=== PATIENT | female | born 1965 | race Caucasian/White ===

== ENCOUNTER 2025-03-17 11:25 | Emergency (ER) | payer BC, SELFPAY ==
[2025-03-17 11:31] VITALS: BP 128/87
[2025-03-17 12:19] VITALS: BP 128/87
[2025-03-17 12:24] VITALS: BMI 39.2
--- NOTE | 2025-03-17 12:41 | ED.GENMED ---
History of Present Illness
<Tasha Negro PA-C - Last Filed: 03/17/25 16:35>
General
Chief Complaint: Social Service Referral
Source: patient
Exam Limitations: none
Time Seen by Provider: 03/17/25 12:28
History of Present Illness
History of Present Illness:
59yoF with a history of ESRD on hemodialysis, colostomy, schizoaffective disorder, hypertension, history of pulmonary embolism presenting via EMS for a social issue. Patient is from the [facility] and was just discharged yesterday after a long
hospital stay at [facility]. She was discharged to [facility] yesterday for halfway care. Patient did not like her care at [facility]. She is upset because they did not have any juice and she did not like the food. The nurses also
did not change her colostomy bag in a timely fashion. Patient signed out AMA from the facility. A family member was unable to pick her up so she called 911. Patient states she would like to go home at this point. There was report that patient
was expressing suicidal thoughts at [facility] earlier today but she adamantly denies saying this and denies any suicidal thoughts or plan. She reports that she was last dialyzed yesterday and typically goes to [facility] to get her
dialysis treatments because she was denied from several other dialysis centers due to her colostomy.
Phy Exam
<Tasha Negro PA-C - Last Filed: 03/17/25 16:35>
General Physical Exam
General Presentation: no apparent distress
General Skin: warm and dry
General Habitus: normal
General Mental: alert
ENT Exam
ENT Exam: normocephalic
Cardiovascular Exam
Cardiovascular Exam: regular rate/rhythm and no edema
Pulmonary Exam
Pulmonary Exam: lungs clear, no respiratory distress, no rales, no crackles, no rhonchi and no wheezing
Gastrointestinal Exam
Gastrointestinal Exam: non tender, soft, non distended and surgical scar
External Findings: colostomy
Neurological Exam
Neurological Exam: alert
[place] Coma Scale
Eye Opening: Spontaneous
Verbal Response: Oriented
Motor Response: Obeys Commands
GCS Total Score: 15
Skin Exam
Skin Exam: normal color and warm/dry
Psychiatric Exam
Psychiatric Exam: normal mood/affect
Course
<Tasha Negro PA-C - Last Filed: 03/17/25 16:35>
Orders/Labs/Results
Orders:
Orders
03/17/25 12:42
Case Management Consult ONCE
Case Management Consult: Discharge Planning
03/17/25 13:32
Lorazepam [Ativan] 0.5 mg PO NOW STA
03/17/25 13:36
03/17/25 13:36
Vital Signs
Initial and Last Documented VS:
Initial Vital Signs
BP Pulse Ox
128/87 98
03/17/25 11:31 03/17/25 11:31
Last Documented Vital Signs
Temp Pulse Resp BP Pulse Ox
98.6 F 104 18 128/87 93
03/17/25 12:19 03/17/25 12:19 03/17/25 12:19 03/17/25 12:19 03/17/25 12:42
<Geoffrey Pak DO - Last Filed: 03/17/25 13:53>
Orders/Labs/Results
Orders:
Orders
03/17/25 12:42
Case Management Consult ONCE
Case Management Consult: Discharge Planning
03/17/25 13:32
Lorazepam [Ativan] 0.5 mg PO NOW STA
03/17/25 13:36
03/17/25 13:36
Vital Signs
Initial and Last Documented VS:
Initial Vital Signs
BP Pulse Ox
128/87 98
03/17/25 11:31 10/03/25 11:31
Last Documented Vital Signs
Temp Pulse Resp BP Pulse Ox
98.6 F 104 18 128/87 93
03/17/25 12:19 03/17/25 12:19 03/17/25 12:19 03/17/25 12:19 03/17/25 12:42
<Tasha Negro PA-C - Last Filed: 03/17/25 16:35>
MDM/Problems Addressed
Differential Diagnosis Includes:
59yoF presenting to the ED after leaving AMA from [facility] earlier today. No specific complaints on arrival and states she would like to go home. Hx of ESRD and was last dialyzed yesterday. VSS. She is in no distress on arrival.
[facility] called to obtain additional information and they confirm that patient was at the facility for <24 hours. Nurse from [facility] states that patient expressed suicidal thoughts earlier today. When asked about this, patient adamantly
denies this and denies any SI/HI. Case management consulted. [facility] is refusing to take the patient back and patient also refusing to go back to [facility]. At this point, there are no medical reasons to admit patient and she would like to go
home. She lives in an apartment in [place], [place] with her friend Gera. I personally called Gera and he agrees to pick patient up and transport her back home. She plans to return to [facility] for her future dialysis treatments.
Patient discharged in stable condition.
<Tasha Negro PA-C - Last Filed: 03/17/25 16:35>
*Pulse Oximetry
SaO2: 93
Oxygen Mode of Delivery: Room air
Patient hypoxic: no
*Critical Care Note
Total Time (30-74mins, 75-104mins- exclusive of procedures): Not Applicable
ED Attending Note
<Tasha Negro PA-C - Last Filed: 03/17/25 16:35>
-
Portions of this chart may have been created with voice recognition software.� Occasional wrong word or��sound alike� substitutions may have occurred due to the inherent limitations of voice recognition software.
<Geoffrey Hernandez Pasha, DO - Last Filed: 03/17/25 13:53>
ED Attending Note
Patient seen and examined by attending physician: Yes
I performed the substantive portion of visit, reviewed & personally made and approve the management plan that is documented in note by myself or AHMET.: Yes
ED Attending Note:
I evaluated the patient at bedside. The patient seems to have fairly reasonable insight and judgment. She does have some cognitive deficits at times but appears to be able to make her own decisions. She adamantly denies any suicidal thoughts.
She has no plan of hurting herself. As of currently, she just wants to go back home up at [place], [place]. [facility] will not take her back. Her friend/boyfriend Gera will be coming to pick her up. The patient tells me that she last got dialyzed
yesterday at [facility] before she arrived to [facility] yesterday. The PA did discuss the case with [facility].
Discharge Plan
Departure
Patient Disposition: Home (Routine Discharge)
Date of Disposition: 03/17/25
Time of Disposition: 13:57
Patient with high blood pressure during this ER visit?: No
Discharge Problem:
Encounter for medical assessment
Instructions: Hemodialysis
Referrals:
Pippa Beaulieu MD [Family Provider]
Activity Restrictions/Additional Instructions:
Please follow-up with your family doctor on Thursday. You should resume your dialysis sessions as usual.
Return to the ER with any new or worsening symptoms.
Interventions
Interventions:
*Risk Screen - Suicide Last Done: 03/17/25 12:25
*General Assessment Last Done: 03/17/25 12:25
*Neglect/Abuse Screening Last Done: 03/17/25 12:25
*ED- Fall Risk Assessment Last Done: 03/17/25 12:25
*ED COVID-19 Vaccine History Last Done: 03/17/25 12:25
*ED Influenza Vaccine History Last Done: 03/17/25 12:25
*Nursing Disposition Last Done: 03/17/25 14:19
ED-Psychological Assessment Last Done: 03/17/25 12:26
Discharge Date and Time
Discharge Date/Time: 03/17/25 14:30
Print Language: KINYARWANDA
--- NOTE | 2025-03-17 14:06 | EDCM ---
CM consult received. I met with pt bedside in ED. Pt is refusing to return to [facility], states 'I just want to go home'. Pt has spoken to her boyfriend Gera who is willing to come and get her. I asked her about dialysis and she told me she just
goes to [facility] ED on her dialysis days and they draw blood and give her dialysis. When I asked about dialysis facilities near where she lives she told me she can't go to them because of issues with her colostomy bag.
I called [facility], spoke to the nursing airflight attendants supervisor Serenity Montesinos and also Hillary in Admissions. Per Hillary, pt signed out AMA from there this morning. She had been there less that 24 hours but was supposed to be there for LTC. Hillary said pt called family
to pick her up but she called 911 when no one came. Per Serenity Montesinos, pt told the nursing staff she wants to and would kill herself if they did not let her go. Pt is due for dialysis today per Serenity Montesinos.
Discussed with Nika in ED. pt will sign out AMA from ED and her boyfriend Gera will pick her up.
== END 2025-03-17 14:30 | disposition home or self-care (01) ==
LOC: EMR 11:25
PROVIDERS: EMERGENCY PHYSICIAN Emergency Medicine; FAMILY PHYSICIAN Internal Medicine
DX: Z00.00 Encounter for general adult medical examination without abnormal findings (principal); I12.0 Hypertensive chronic kidney disease with stage 5 chronic kidney disease or end stage renal disease; N18.6 End stage renal disease; Z99.2 Dependence on renal dialysis; F25.9 Schizoaffective disorder, unspecified; Z93.3 Colostomy status; Z86.711 Personal history of pulmonary embolism
CPT/HCPCS: 99283